=== PATIENT | female | born 1980 | race Caucasian/White ===

== ENCOUNTER 2024-06-22 15:12 | Emergency (ER) | payer OTHER, SELFPAY ==
[2024-06-22 15:14] VITALS: BP 141/96
[2024-06-22 16:28] VITALS: BP 121/87; BMI 23.3
[2024-06-22 17:00] VITALS: BP 115/79
[2024-06-22] MEDS: TORADOL 30 MG IV (17:05)
[2024-06-22] MEDS: COMPAZINE 10 MG IV (17:05)
[2024-06-22] MEDS: BENADRYL 25 MG IV (17:05)
[2024-06-22] MEDS: NSS 1000 IV (17:05)
--- NOTE | 2024-06-22 17:35 | ED.GENMED ---
History of Present Illness
General
Chief Complaint: Headache
Source: patient
Exam Limitations: none
Time Seen by Provider: 06/22/24 15:57
Nursing documentation reviewed up to this point in time: agreed with
History of Present Illness
History of Present Illness:
43 y/o F with h/o migraines previously
formerly seen by neuro
used to take maxalt
also with h/o occasional sinus infections
says 10 days ago started with laryngitis, then had some nasal congesiton that led to facial fullness/pressure
she went to 4 days ago and got ceftin which she has been taking
yesterday she started feeling pain/pressure behind both eyes, photophobia, nauesa no vomiting, and figured she had migraine
she usually takes motrin and tylenol because she no longer has maxalt and says it was toelrable yesterdya
today this afternoon her pain gradually progressed to 9/10
she last took tylenol 1 pm
(motrin in am)
no vomiting, fever, neck stiffnes, facial swelling, weakness/numbness
this feels like her migraines but just a little worse
\\
Past History
Past History
ED Past Medical History: Other (sinusitis, migraines)
Social History
Tobacco: Non-smoker
Alcohol: None
Drug: None
Personal:
Review of Systems
Review of Systems
Allergies reviewed?: Yes
All Other Systems: Not applicable
Phy Exam
Physical Exam
Physical Exam:
GENERAL: Alert , in no apparent distress
HEAD: NCAT
no significant faical tendneress, no swelling
EYE: pupils equal and reactive, no nystagmus, minimal photophobia
NECK: Supple,full rom, nontender
ENT: o/p clr, mmm.
CARDIAC: Regular rate and rhythm . no edema
LUNGS: Clear breath sounds bilaterally, no acute respiratory distress, no wheezes/rales/rhonchi
ABDOMEN: Soft, without focal tenderness, no r/g, no cvat
NEUROLOGICAL: Alert and orientedx 4, cn intact, no facial asymmetry, 5/5 strength in UE/LE, sensation intact, romberg neg, ambulates without assistance, neg pronator drift
SKIN: Warm and dry, skin intact.
MUSCULOSKELETAL: No edema, well perfused.
PSYCH: Normal and appropriate interaction.
Course
Orders/Labs/Results
Orders:
Orders
06/22/24 16:54
Diphenhydramine [Benadryl] 25 mg IV NOW STA
Ketorolac [Toradol] 30 mg IV NOW STA
Prochlorperazine [Compazine] 10 mg IV NOW STA
06/22/24 16:55
0.9% Sodium Chloride 1000 ml [Nss] 1,000 ml IV BOLUS
Vital Signs
Initial and Last Documented VS:
Initial Vital Signs
Temp Pulse Resp BP Pulse Ox
36.7 C 97 16 141/96 99
06/22/24 15:14 06/22/24 15:14 06/22/24 15:14 06/22/24 15:14 06/22/24 15:14
Last Documented Vital Signs
Temp Pulse Resp BP Pulse Ox
36.7 C 74 16 115/79 97
06/22/24 15:14 06/22/24 17:00 06/22/24 17:00 06/22/24 17:00 06/22/24 17:00
MDM/Problems Addressed
Differential Diagnosis Includes:
migraine, sinusitis headache, less likely abscess;
MDM/Problems Addressed:
43 y/o F with h/o mgiraines
has sinus infection currently she is taking ceftin for
gradual onset of migrainous headahce yesterday
peaked today with intensity 9/10
used to take maxalt but doesn' thave any
here vitals stable, minimal photophobia
no meningismus
normal neuor exam
no facial swelling
will treat with migraine cocktail
consider maxalt rx for rebound
1814
reassessed
pain improved
pt requesting to go home
d/c home with maxalt prescription
*Critical Care Note
Total Time (30-74mins, 75-104mins- exclusive of procedures): Not Applicable
ED Attending Note
-
Portions of this chart may have been created with voice recognition software.� Occasional wrong word or��sound alike� substitutions may have occurred due to the inherent limitations of voice recognition software.
Discharge Plan
Departure
Patient Disposition: Home (Routine Discharge)
Date of Disposition: 06/22/24
Time of Disposition: 17:51
Patient with high blood pressure during this ER visit?: No
Condition: Fair
Covid-19: Not Applicable
Discharge Problem:
Migraine
Instructions: Migraines (DC)
Prescriptions:
New
rizatriptan [Maxalt] 10 mg tablet
10 mg PO DAILY PRN (Reason: MIGRAINE) Qty: 2 0RF
Rx Instructions:
10 MG PO DAILY PRN HEADACHE; MAY REPEAT 2ND DOSE IN 24 HOURS
Referrals:
NONE,* [Family Provider] -
Activity Restrictions/Additional Instructions:
YOUR HEADACHE IS LIKELY MIGRAINE
YOU CAN TRY A DOSE OF MAXALT IF YOUR PAIN RETURNS
THEN YOU CAN REPEAT IT IN 24 HOURS IF YOU NEED
RETURN FOR: SEVERE SUDDEN WORST HEADACHE, VOMITING, FEVER, CONFUSION, WEAKNESS.
Interventions
Interventions:
*Risk Screen - Suicide Last Done: 06/22/24 15:14
*General Assessment Last Done: 06/22/24 15:14
*Neglect/Abuse Screening Last Done: 06/22/24 16:30
ED- Fall Risk Assessment Last Done: 06/22/24 16:28
*ED COVID-19 Vaccine History Last Done: 06/22/24 15:14
ED- Neurological Assessment Last Done: 06/22/24 16:28
Discharge Date and Time
Print Language: [place]
--- NOTE | 2024-06-22 17:49 | EDRN ---
Pt asking how long it will be. Pain is presently 5-12/31. Shantanu CAVANAUGH was informed and is now in room w/ pt at this time.
[2024-06-22 18:00] VITALS: BP 107/71
== END 2024-06-22 18:18 | disposition home or self-care (01) ==
LOC: EMR 15:12
PROVIDERS: EMERGENCY PHYSICIAN Emergency Medicine
DX: G43.909 Migraine, unspecified, not intractable, without status migrainosus (principal)
CPT/HCPCS: 99284; 96374; 96375 ×2; 96361

== ENCOUNTER 2024-07-17 19:04 | Emergency (ER) | payer OTHER, SELFPAY ==
[2024-07-17 19:06] VITALS: BP 119/85
--- NOTE | 2024-07-17 20:10 | ED.GENMED ---
History of Present Illness
General
Chief Complaint: Headache
Source: patient
Exam Limitations: none
Time Seen by Provider: 07/17/24 19:42
History of Present Illness
History of Present Illness:
This is a 43 year old female that comes in with c/o headache and abd pain. States that States that she was recently put on an antibiotic (Biaxin) and she took this for 7 days. States that on Monday she had pain on the bottom of her feet and her
fingers were numb and she had palpitations. Sate that she stopped the medication on Monday and took Benadryl. On Monday and Monday she was good. They yesterday she started with a headache. States that she tried Maxalt and this helped a little.
Today she took Tylenol in the morning and tried to push through. States that it just kept getting worse and worse. States that her pain is all over and down in to the left shoulder. States that she vomited twice and she has pressure in her face.
States that she is light and sound sensative. Denies any fever, chills, chest pain, SOB, abd pain, diarrhea, dizziness, urinary burning.
Past History
Past History
ED Past Medical History: Other (sinusitis, migraines); Negative Asthma, HTN, Hypercholesterolemia or NIDDM
ED Past Surgical History: Orthopedic (Left Meniscus repair, )
Social History
Tobacco: Non-smoker
Alcohol: None
Drug: None
Personal:
Living: with family
Review of Systems
Review of Systems
All Other Systems: ROS reviewed and negative except as documented in HPI and ROS
Constitutional: Reports no symptoms; Denies fever or chills
EENT: Reports no symptoms
Respiratory: Reports no symptoms; Denies cough or trouble breathing
Cardiac: Reports no symptoms; Denies chest pain
ABD/GI: Reports abdominal pain (Right sided), nausea and vomiting; Denies diarrhea
: Reports no symptoms; Denies dysuria, frequency or urgency
Musculoskeletal: Reports no symptoms
Skin: Reports no symptoms
Neurological: Reports headache; Denies dizzy
Psychiatric: Reports no symptoms
Phy Exam
General Physical Exam
General Presentation: mild distress
General age: appears stated age
General Skin: warm and dry
General Habitus: normal
General Mental: alert
General Hydration: dry mucous membranes
ENT Exam
ENT Exam: TM's normal, pharynx normal and neck supple
Eye Exam
Eye Exam: EOMI
Cardiovascular Exam
Cardiovascular Exam: regular rate/rhythm, no edema, no murmur and normal peripheral pulses
Pulmonary Exam
Pulmonary Exam: lungs clear, no respiratory distress, no rales, chest non tender, no crackles, no rhonchi, no wheezing and no cough
Gastrointestinal Exam
Gastrointestinal Exam: normal bowel sounds, soft, no organomegaly, no pulsatile mass, non distended and tender (Right sided abd tenderness with palpation)
Musculoskeletal Exam
Musculoskeletal Exam: full ROM and no edema
Skin Exam
Skin Exam: normal color, warm/dry, no rash and no petechia
Psychiatric Exam
Psychiatric Exam: normal mood/affect
Course
Orders/Labs/Results
Orders:
Orders
07/17/24 20:08
0.9% Sodium Chloride 1000 ml [Nss] 1,000 ml IV BOLUS
Acetaminophen [Tylenol] 1,000 mg PO NOW STA
Dexamethasone Sod Phosphate [Decadron] 20 mg IV NOW STA
Diphenhydramine [Benadryl] 25 mg IV NOW STA
Ketorolac [Toradol] 30 mg IV NOW STA
Prochlorperazine [Compazine] 5 mg IV NOW STA
Test Result ONCE
07/17/24 20:09
CT Abd/pelvis W Iv Cont Urgent
Comment:
Reason For Exam: Right lower abd pain
07/17/24 20:36
Complete Blood Count/With Diff Urgent
Comprehensive Metabolic Panel Urgent
HCG, Serum Qualitative Screen Urgent
Abnormal Lab Results
07/17/24
20:36
RBC 4.10 L 10^6/uL
(4.20-5.40)
Hgb 11.0 L g/dL
(12.0-16.0)
Hct 34.9 L %
(37.0-47.0)
MCH 26.8 L pg
(27.0-31.0)
MCHC 31.5 L g/dL
(33.0-37.0)
Abs Immat Gran (auto) 0.3 H 10^3/uL
(0-0.05)
Immature Gran % 4.0 H %
(0-0.5)
Lymphocytes % 18.4 L %
(20.5-51.1)
Glucose 118 H mg/dl
(70-99)
Total Protein 6.2 L g/dl
(6.3-8.2)
07/17/24 20:36
07/17/24 20:36
H/H slightly low. Glucose nonfasting. Total protein slightly low. HCG negative.
Vital Signs
Initial and Last Documented VS:
Initial Vital Signs
Temp Pulse Resp BP Pulse Ox
97.9 F 84 16 119/85 99
07/17/24 19:06 07/17/24 19:06 07/17/24 19:06 07/17/24 19:06 07/17/24 19:06
Last Documented Vital Signs
Temp Pulse Resp BP Pulse Ox
97.9 F 85 17 110/67 99
07/17/24 19:06 07/17/24 22:16 07/17/24 22:16 07/17/24 22:16 07/17/24 22:16
MDM/Problems Addressed
Differential Diagnosis Includes:
Migraines, Appendicitis, Gallbladder disease
MDM/Problems Addressed:
This is a 43 year old female that comes in with multiple complaints. States that she has a migraine that is getting worse and right sided abd pain. States that this started yesterday and has continued to get worse.
Will check labs. Medicate for headache pain and get CT scan of abd/pelvis to r/o appendicitis.
Back into see patient. States that she is feeling better. Explained that her CT is negative for any acute process. There is lesion on the right lobe hepatic and left renal lesion but they are to small to characterize. Patient to increase her water
intake to 8-8oz glasses daily. Patient can take Tylenol 1000mg every 6 hours and Ibuprofen 600mg every 6 hours with food and alternate them. Follow up with the family doctor. Return with any concerns.
Chronic conditions affecting care:
Migraines
Acute Exacerbation and/or Progression of Chronic Illness:
Migraines
*Radiology
Radiology exam reviewed: radiology read reviewed (CT-Appendix normal in size witihout accompanying inflammatory changes. Subcentimeter low-attenuation right lobe hepatic and left renal lesions too small to characterize. Symmetric renal excretion.
Contracted gallbladder likely postprandial, food material seen within the stomach. No intestinal ), all reviewed NAD by ED Provider (CT cont-No intestinal obstrauction of ree air. Evaluation for intestinal tract pathology markedly limited without
oral contrast, cannot be excluded. Heterogeneous uterus likely with leiomyomatous changes. Small volume free fluid in the dependent true pelvis of uncertain etiology, possibly the ) and other (CT cont- sequela of recently ruptured adnexal cyst. Mild
hepatomegaly. )
*Pulse Oximetry
Patient hypoxic: no
*EKG
Interpreted by ED Provider?: NA
Rate: EKG- N/A
*Forest Aide Interpretation
Rate: Forest Aide- N/A
*Critical Care Note
Total Time (30-74mins, 75-104mins- exclusive of procedures): Not Applicable
ED Attending Note
-
Portions of this chart may have been created with voice recognition software.� Occasional wrong word or��sound alike� substitutions may have occurred due to the inherent limitations of voice recognition software.
Discharge Plan
Departure
Patient Disposition: Home (Routine Discharge)
Date of Disposition: 07/17/24
Time of Disposition: 22:33
Patient with high blood pressure during this ER visit?: No
Condition: Good
Covid-19: Not Applicable
Discharge Problem:
Migraine, Abdominal pain
Instructions: Migraines (DC), Abdominal pain in adults - ED discharge instructions
Prescriptions:
No Action
rizatriptan [Maxalt] 10 mg tablet
10 mg PO DAILY PRN (Reason: MIGRAINE) Qty: 2 0RF
Rx Instructions:
10 MG PO DAILY PRN HEADACHE; MAY REPEAT 2ND DOSE IN 24 HOURS
Referrals:
UNKNOWN - PT DOES,NOT KNOW [Family Provider] -
Activity Restrictions/Additional Instructions:
As discussed, your blood work is normal. Your CT is negative for any acute process. There is a right hepatic lobe and left renal lesion that are to small to characterize. Your Appendix is normal. Please increase your water intake to 8-8oz glasses
daily. You may use Tylenol 1000mg every 6 hours and alternate with Ibuprofen 600mg every 6 hours with food for pain. So if you take Tylenol at 9am you can take the Ibuprofen at 12 noon and then Tylenol at 3pm and Ibuprofen at 6pm. Follow up with the
family doctor for recheck. IF YOU HAVE ANY OTHER CONCERNS PLEASE RETURN TO THE EMERGENCY ROOM.
Interventions
Interventions:
*Risk Screen - Suicide Last Done: 07/17/24 19:06
*General Assessment Last Done: 07/17/24 19:06
*Neglect/Abuse Screening Last Done: 07/17/24 19:06
*ED COVID-19 Vaccine History Last Done: 07/17/24 19:06
ED- Neurological Assessment Last Done: 07/17/24 20:05
Discharge Date and Time
Print Language: [place]
[2024-07-17] MEDS: BENADRYL 25 MG IV (20:37)
[2024-07-17] MEDS: NSS 1000 IV (20:37)
[2024-07-17] MEDS: COMPAZINE 5 MG IV (20:38)
[2024-07-17] MEDS: DECADRON 20 MG IV (20:39)
[2024-07-17] MEDS: TYLENOL 1000 MG PO (20:41)
[2024-07-17] MEDS: TORADOL 30 MG IV (20:41)
[2024-07-17 20:48] LABS: % Basophils 0.4 % (0-2); % Eosinophils 1.4 % (0-6); % Lymphocytes 18.4 % (20.5-51.1); % Monocytes 7.5 % (1.7-9.3); % Neutrophils 68.3 % (42.2-75.2); Absolute Eosinophils 0.1 10^3/uL (0-0.7); Absolute Immature Granulocytes 0.3 10^3/uL (0-0.05); Absolute Lymphocytes 1.4 10^3/uL (1.2-3.4); Absolute Monocytes 0.6 10^3/uL (0.1-0.6); Hematocrit 34.9 % (37.0-47.0); Mean Corp Hgb Conc. 31.5 g/dL (33.0-37.0); Mean Corpuscular Hgb 26.8 pg (27.0-31.0); Mean Corpuscular Volume 85.1 fL (81.0-99.0); Mean Platelet Volume 8.9 fL (7.4-10.4); Nucleated Red Blood Cells % 0 %; Platelet Count 259 10^3/uL (130-400); Red Cell Dist. Width 12.7 % (11.5-14.5); White Blood Cell Count 7.3 10^3/uL (4.8-10.8)
[2024-07-17 21:05] LABS: HCG, Serum Qualitative Screen Negative
[2024-07-17 21:07] LABS: ALT (SGPT) 19 U/L (0-35); AST (SGOT) 19 U/L (14-36); Albumin 3.9 g/dl (3.5-5.0); Alkaline Phosphatase 49 U/L (38-126); Blood Urea Nitrogen 11 mg/dl (7-17); Carbon Dioxide 29 mmol/L (22-30); Chloride 101 mmol/L (98-107); Glucose 118 mg/dl (70-99); Potassium 4.2 mmol/L (3.5-5.1); Sodium 135 mmol/L (135-145); Total Bilirubin 0.5 mg/dl (0.2-1.3); Total Protein 6.2 g/dl (6.3-8.2); eGFR > 60.00
[2024-07-17 22:16] VITALS: BP 110/67
== END 2024-07-17 22:51 | disposition home or self-care (01) ==
LOC: EMR 19:04
PROVIDERS: Clinical Nurse Specialist Family Health; EMERGENCY PHYSICIAN Student in an Organized Health Care Education/Training Program
DX: G43.909 Migraine, unspecified, not intractable, without status migrainosus (principal); R10.9 Unspecified abdominal pain; M79.646 Pain in unspecified finger(s)
CPT/HCPCS: 99284; 96374; 96375; 96361; 74177; 80053; 84703; 85025; Q9967

== ENCOUNTER 2024-07-20 07:39 | Emergency (ER) | payer OTHER, SELFPAY ==
[2024-07-20 07:50] VITALS: BP 107/69
[2024-07-20 08:26] LABS: HCG, Serum Qualitative Screen Negative
[2024-07-20 08:30] LABS: ALT (SGPT) 20 U/L (0-35); AST (SGOT) 15 U/L (14-36); Alkaline Phosphatase 40 U/L (38-126); Blood Urea Nitrogen 15 mg/dl (7-17); Carbon Dioxide 30 mmol/L (22-30); Chloride 102 mmol/L (98-107); Glucose 84 mg/dl (70-99); Lipase 130 U/L (23-300); Potassium 4.1 mmol/L (3.5-5.1); Sodium 138 mmol/L (135-145); Total Bilirubin 0.6 mg/dl (0.2-1.3); Total Protein 6.3 g/dl (6.3-8.2); eGFR > 60.00
[2024-07-20 08:36] LABS: % Basophils 0.8 % (0-2); % Eosinophils 2.1 % (0-6); % Immature Granulocytes 1.1 % (0-0.5); % Lymphocytes 22.1 % (20.5-51.1); % Monocytes 7.2 % (1.7-9.3); % Neutrophils 66.7 % (42.2-75.2); Absolute Basophils 0.1 10^3/uL (0-0.2); Absolute Eosinophils 0.2 10^3/uL (0-0.7); Absolute Immature Granulocytes 0.1 10^3/uL (0-0.05); Absolute Lymphocytes 1.6 10^3/uL (1.2-3.4); Absolute Monocytes 0.5 10^3/uL (0.1-0.6); Absolute Neutrophils 4.7 10^3/uL (1.4-6.5); Hematocrit 33.9 % (37.0-47.0); Mean Corp Hgb Conc. 32.4 g/dL (33.0-37.0); Mean Corpuscular Hgb 27.1 pg (27.0-31.0); Mean Corpuscular Volume 83.5 fL (81.0-99.0); Mean Platelet Volume 9.1 fL (7.4-10.4); Nucleated Red Blood Cells % 0 %; Platelet Count 253 10^3/uL (130-400); Red Blood Cell Count 4.06 10^6/uL (4.20-5.40); Red Cell Dist. Width 13.2 % (11.5-14.5); White Blood Cell Count 7.1 10^3/uL (4.8-10.8)
[2024-07-20 10:35] LABS: COVID-19 Antigen Negative (Negative)
--- NOTE | 2024-07-20 10:55 | ED.GENMED ---
History of Present Illness
General
Chief Complaint: Headache
Source: patient
Time Seen by Provider: 07/20/24 09:57
History of Present Illness
History of Present Illness:
43-year-old female presents to the emergency room complaining of a headache. Patient describes this as a migraine. Patient had migraine headaches when she was younger but they seem to go away while she was going through in vitro fertilization
treatments. She does have an appoint with a neurologist on July 26. Patient was seen here in the emergency room a couple times and was prescribed Maxalt. She took Maxalt the other day for headache which did help some. However on July 17
she needed to come to the emergency room again. Treatment here alleviated the headache but it has returned. She has nausea but no vomiting.
Past History
Past History
ED Past Medical History: Other (sinusitis, migraines); Negative Asthma, HTN, Hypercholesterolemia or NIDDM
ED Past Surgical History: Orthopedic (Left Meniscus repair, )
Social History
Tobacco: Non-smoker
Alcohol: None
Drug: None
Personal:
Living: with family
Phy Exam
Physical Exam
Physical Exam:
General: Awake, Alert, Oriented X3. No acute distress.
Vitals: unremarkable
Head: Atraumatic
Eyes: Pupils equal, EOMI
Throat: Airway intact, no exudates
Neck: Trachea midline, no nuchal rigidity
Lungs: Clear and equal b/l
Heart: Regular rate, no murmurs
Abd: Soft, Nontender, No pulsatile mass
Neuro: Cranial nerves intact, muscle strength equal bilaterally, cerebellar exam normal
Skin: Warm, dry, no rash
Extremities: pulses equal b/l, no edema
Course
Orders/Labs/Results
Orders:
Orders
07/20/24 07:56
CT Head W/o Iv Contrast Urgent
Comment:
Reason For Exam: headache
07/20/24 07:58
Test Result ONCE
07/20/24 08:06
Complete Blood Count/With Diff Urgent
Comprehensive Metabolic Panel Urgent
HCG, Serum Qualitative Screen Urgent
Lipase Urgent
07/20/24 10:13
COVID-19 Antigen Urgent
Source: Nasal Swab
Influenza A+B Rapid Molecular Urgent
EMILIA Source: Nasal Swab
Specimen Description:
07/20/24 10:54
Diphenhydramine [Benadryl] 25 mg IV NOW STA
07/20/24 10:55
Prochlorperazine [Compazine] 10 mg IV NOW STA
07/20/24 10:57
Lactated Ringers [Lr] 500 ml IV BOLUS
07/20/24 10:59
Dexamethasone Sod Phosphate [Decadron] 10 mg IV NOW STA
Abnormal Lab Results
07/20/24
08:06
RBC 4.06 L 10^6/uL
(4.20-5.40)
Hgb 11.0 L g/dL
(12.0-16.0)
Hct 33.9 L %
(37.0-47.0)
MCHC 32.4 L g/dL
(33.0-37.0)
Abs Immat Gran (auto) 0.1 H 10^3/uL
(0-0.05)
Immature Gran % 1.1 H %
(0-0.5)
07/20/24 08:06
07/20/24 08:06
Vital Signs
Initial and Last Documented VS:
Initial Vital Signs
Temp Pulse Resp BP Pulse Ox
97.9 F 59 16 107/69 99
07/20/24 07:50 07/20/24 07:50 07/20/24 07:50 07/20/24 07:50 07/20/24 07:50
Last Documented Vital Signs
Temp Pulse Resp BP Pulse Ox
97.9 F 59 16 107/69 99
07/20/24 07:50 07/20/24 07:50 07/20/24 07:50 07/20/24 07:50 07/20/24 07:50
MDM/Problems Addressed
Differential Diagnosis Includes:
migraine headache, tension headache, sinusitis,
MDM/Problems Addressed:
Patient presents with migraine headache. She had a couple visits recently for the same. CT was performed in triage which shows no acute abnormalities. The sinuses also appear clear. Patient treated with IV Compazine and Benadryl with significant
relief of her headache. Given her frequent headaches a dose of Decadron was also administered to hopefully prevent rebound headache. Patient has an appointment with a neurologist on July 26.
*Radiology
Radiology exam reviewed: radiology read reviewed
*Pulse Oximetry
Patient hypoxic: no
*Critical Care Note
Total Time (30-74mins, 75-104mins- exclusive of procedures): Not Applicable
ED Attending Note
-
Portions of this chart may have been created with voice recognition software.� Occasional wrong word or��sound alike� substitutions may have occurred due to the inherent limitations of voice recognition software.
Discharge Plan
Departure
Patient Disposition: Home (Routine Discharge)
Date of Disposition: 07/20/24
Time of Disposition: 13:48
Patient with high blood pressure during this ER visit?: No
Condition: Good
Discharge Problem:
Headache, migraine
Instructions: Migraines (DC)
Prescriptions:
No Action
rizatriptan [Maxalt] 10 mg tablet
10 mg PO DAILY PRN (Reason: MIGRAINE) Qty: 2 0RF
Rx Instructions:
10 MG PO DAILY PRN HEADACHE; MAY REPEAT 2ND DOSE IN 24 HOURS
Referrals:
NONE,* [Family Provider] -
Activity Restrictions/Additional Instructions:
The CT of your head is normal. The radiologist does not see any evidence of sinusitis either. You were given a dose of a steroid with the hopes it will prevent the return of another migraine. Return to the ER for any concerns.
Interventions
Interventions:
*Risk Screen - Suicide Last Done: 07/20/24 07:50
*General Assessment Last Done: 07/20/24 07:50
*Neglect/Abuse Screening Last Done: 07/20/24 11:15
*ED COVID-19 Vaccine History Last Done: 07/20/24 07:50
ED- Neurological Assessment Last Done: 07/20/24 11:15
Discharge Date and Time
Print Language: [place]
[2024-07-20] MEDS: DECADRON 10 MG IV (11:09)
[2024-07-20] MEDS: COMPAZINE 10 MG IV (11:09)
[2024-07-20] MEDS: BENADRYL 25 MG IV (11:09)
[2024-07-20] MEDS: LR 500 IV (11:10)
[2024-07-20 14:05] VITALS: BP 108/70
== END 2024-07-20 14:07 | disposition home or self-care (01) ==
LOC: EMR 07:39
PROVIDERS: EMERGENCY PHYSICIAN Emergency Medicine
DX: G43.909 Migraine, unspecified, not intractable, without status migrainosus (principal)
CPT/HCPCS: 96374; 96375; 99284; 70450; 80053; 83690; 84703; 85025; 87502; 87811

== ENCOUNTER → 2025-01-10 12:39 | Outpatient (REF) | payer OTHER, SELFPAY | LOC: MRI 3T 12:39 | PROVIDERS: ATTENDING PHYSICIAN Obstetrics & Gynecology; FAMILY PHYSICIAN Family Medicine | DX: Z15.01 Genetic susceptibility to malignant neoplasm of breast (principal) | CPT/HCPCS: 77049; A9585 ==